=== PATIENT | male | born 1950 | race Asian ===

== ENCOUNTER 2016-06-13 11:53 | Emergency (ER) | payer MEDICARE, MEDICAID ==
[~2016-06-13] VITALS: Ht 165.1 cm; Wt 59.0 kg
[2016-06-13 12:09] VITALS: BP 152/92; PULSE 90; RESP 15; TEMP 97.3; O2SAT 94
--- NOTE | 2016-06-13 12:09 | NUR ---
Patient to ER bed 08 to gown for evaluation. Side rails up. Report given to LORI Rucker.
--- NOTE | 2016-06-13 12:09 | NUR ---
Pt report received from LORI Gonzalez. Pt c/o lower back pain s/p fall x 1 week ago while carrying a water jug. Pt states pain has now become unbearable. No trauma noted. Family member at bedside.
--- NOTE | 2016-06-13 12:48 | NUR ---
ER Dr. Karimi at bedside examining patient.
[2016-06-13] MEDS ORDERED: DIAZEPAM 10 MG/2 ML DISP.SYRIN IM ONE (13:00)
[2016-06-13] MEDS ORDERED: OXYCODONE/ACETAMINOPHEN 5-325 TABLET PO ONE (13:00)
--- NOTE | 2016-06-13 13:25 | NUR ---
Pt to CT via stretcher.
--- NOTE | 2016-06-13 13:40 | NUR ---
Pt returns from CT.
[2016-06-13 14:35] VITALS: BP 130/88; PULSE 76; RESP 20; TEMP 98.4; O2SAT 96
--- NOTE | 2016-06-13 14:35 | NUR ---
Patient given written and verbal discharge instructions and verbalizes understanding. ER MD discussed with patient the results and treatment provided. Patient in stable condition. ID arm band removed. Rx of Flexeril, Medrol Dose Pack, Motrin given. Patient educated on pain management and to follow up with PMD. Pain Scale 2/10, tolerable. Opportunity for questions provided and answered.
== END 2016-06-13 14:35 | disposition home or self-care (01) ==
LOC: SED 11:53
DX: S32.028A Other fracture of second lumbar vertebra, initial encounter for closed fracture (principal); W19.XXXA Unspecified fall, initial encounter; Y93.89 Activity, other specified; Y92.89 Other specified places as the place of occurrence of the external cause; Y99.8 Other external cause status
CPT/HCPCS: 72131; 96372; 99284; J3360; 99283